=== PATIENT | male | born 1970 ===

== ENCOUNTER 2019-02-16 05:26 | Day surgery (SDC) | payer BC ==
[2019-02-16] MEDS ORDERED: SEVOFLURANE 250 ML INH ONE (05:27)
[2019-02-16] MEDS ORDERED: LIDOCAINE 2% MDV (20MG/ML) 20ML VIAL IV ONE (05:27)
[2019-02-16] MEDS ORDERED: FENTANYL PF 100MCG/2ML VIAL IV ONE (05:27)
[2019-02-16] MEDS ORDERED: MIDAZOLAM HCL 2MG/2ML VIAL IV ONE (05:27)
[2019-02-16] MEDS ORDERED: ONDANSETRON HCL IV 4 MG/2 ML VIAL IVP ONE (05:27)
[2019-02-16] MEDS ORDERED: HYDROMORPHONE HCL 2 MG/ML VIAL IV ONE (05:27)
[2019-02-16] MEDS ORDERED: SUCCINYLCHOLINE 20 MG/ML 10ML IVP ONE (05:27)
[2019-02-16] MEDS ORDERED: PROPOFOL 10 MG/ML VIAL IV ONE (05:27)
[2019-02-16] MEDS ORDERED: KETOROLAC 30 MG/ML VIAL IVP ONE (05:27)
[2019-02-16] MEDS ORDERED: RINGERS SOLUTION,LACTATED 1,000 ML IV ONE ×2 (06:00→08:23)
[2019-02-16] MEDS ORDERED: ACETAMINOPHEN 1,000 MG/100 ML BTL IVPB ONE (06:00)
[2019-02-16] MEDS ORDERED: ALBUTEROL SULFATE (0.083%) 2.5 MG/3 ML NEB INH ONE (08:31)
[2019-02-16] MEDS ORDERED: HYDROCODONE/APAP 5/325MG TABLET PO ONE (09:01)
--- NOTE | 2019-02-17 13:31 | Operative Note ---
DATE OF SURGERY: 02/16/2019 PREOPERATIVE DIAGNOSIS: Posterior calcaneal spur on the left. POSTOPERATIVE DIAGNOSIS: Posterior calcaneal spur on the left. OPERATION: Excision of posterior calcaneal spur left ankle. SURGEON: Blu Bloom D.O. REFERRING PHYSICIAN: Dhruv Rocha ANESTHESIA: General. PROCEDURE: This 48-year-old male was taken to the operating room and placed in the prone position on the operating room table after general anesthesia was induced by the Department of Anesthesia. The left lower extremity was then prepped with Hibiclens and draped in the usual sterile fashion, exsanguinated, and the tourniquet inflated to 225 mg of mmHg. A longitudinal incision was made just to the lateral side of the midline, approximately 2 inches in length, dissecting down through the skin and subcutaneous tissue overlying the calcaneal spur. This was easily palpable and the longitudinal incision was made posteriorly in the tendon to the level of the spur and then subperiosteally dissected free. The spur was then excised with the osteotome and rongeur used to further resect small fragments of the spur which were present. The main attachment of the Achilles tendon remained intact and the wound was irrigated with lactated Ringer's solution. We searched for all loose fragments of bone and we believe that we had removed all of them and the wound irrigated. The paratenon was closed with #2 Vicryl and the subcutaneous tissue closed with the same suture and the skin closed with 3-0 nylon suture. Sterile dressings with a plaster splint immobilization was applied. The patient was taken to the recovery room in satisfactory condition. GROSS PATHOLOGY: This patient had a very large calcaneal spur posteriorly, encased within the fibers of the Achilles tendon. These were sharply dissected from the spur and the spur removed and then the tendon repaired in the manner described above. SLIME
== END 2019-02-16 09:25 | disposition home or self-care (01) ==
LOC: SUR 05:26
PROVIDERS: ATTEND Orthopaedic Surgery
DX: M77.32 Calcaneal spur, left foot (principal); R06.02 Shortness of breath; I10 Essential (primary) hypertension; J45.909 Unspecified asthma, uncomplicated; E11.9 Type 2 diabetes mellitus without complications; Z79.4 Long term (current) use of insulin
CPT/HCPCS: 36416; 82948; 94640; J0330; J1885; J2405; J7120; J7613